=== PATIENT | female | born 1995 | race Caucasian/White ===

== ENCOUNTER 2019-12-23 10:37 | Emergency (ER) | payer MEDICAID ==
[~2019-12-23] VITALS: Ht 165.1 cm; Wt 43.1 kg
--- NOTE | 2019-12-23 10:37 | NUR ---
PT BIB [facility],C/O GENERALIZED BODY PAIN S/P GLF YESTERDAY, PT IS AAOX4, NOT IN RESPIRATORY DISTRESS, HOOKED TO ORDER ENTRY SPECIALIST, KEPT RESTED AND COMFORTABLE. WILL CONTINUE TO MONITOR.
[2019-12-23] MEDS ORDERED: FENTANYL PF 100MCG/2ML AMPUL ONE ×2 (10:54→12:31)
--- NOTE | 2019-12-23 10:55 | NUR ---
PT SEEN AND EXAMINED BY .
--- NOTE | 2019-12-23 10:58 | NUR ---
IV LINE ESTABLISHED BLOOD DRAWN.
[2019-12-23] MEDS ORDERED: IV NS 0.9% 1,000 ML BAG IV ONE (11:00)
[2019-12-23] MEDS ORDERED: FENTANYL PF 100MCG/2ML AMPUL IV ONE ×2 (11:00→12:00)
--- NOTE | 2019-12-23 11:02 | NUR ---
ER PHLEB AT BEDSIDE FOR BLOOD DRAW.
--- NOTE | 2019-12-23 11:10 | NUR ---
PT SIGNED WAIVER AND AGREED TO THE XRAY/CT SCAN.
--- NOTE | 2019-12-23 11:15 | NUR ---
PT CLEARED FROM C-SPINE. C-COLLAR REMOVED BY DR GASTON.
[2019-12-23 11:18] LABS: BASOPHILS # (AUTO) 0.1 /CMM (0.0-0.2); BASOPHILS % (AUTO) 0.3 % (0.0-2.0); EOSINOPHILS % (AUTO) 0.1 % (0.0-6.0); HEMATOCRIT 37 % (33-45); HEMOGLOBIN 12.3 g/dL (11.5-14.8); LYMPHOCYTES # (AUTO) 0.7 /CMM (0.8-4.8); LYMPHOCYTES % (AUTO) 3.8 % (20.0-44.0); MEAN CORPUSCULAR HGB CONC 33 g/dl (31.0-36.0); MEAN CORPUSCULAR VOLUME 92 fL (82-100); MONOCYTES % (AUTO) 5.3 % (2.0-12.0); NEUTROPHILS # (AUTO) 17.7 /CMM (1.8-8.9); NEUTROPHILS % (AUTO) 90.5 % (43.0-81.0); PLATELET COUNT (AUTO) 138 /CMM (150-450); RED BLOOD CELL COUNT(AUTO) 4.06 MIL/uL (4.0-5.2); WHITE BLOOD COUNT (AUTO) 19.6 K/uL (4.3-11.0)
--- NOTE | 2019-12-23 11:18 | NUR ---
CONTACT ASSEMBLER AT BEDSIDE FOR XRAY.
[2019-12-23 11:26] LABS: ALANINE AMINOTRANSFERASE 149 U/L (12-78); ALBUMIN 3.9 g/dL (3.4-5.0); ALCOHOL, BLOOD < 3 mg/dL (0-0); ALKALINE PHOSPHATASE 49 U/L (46-116); ASPARTATE AMINOTRANSFERASE 161 U/L (15-37); BILIRUBIN,DIRECT 0.3 mg/dL (0.0-0.2); BILIRUBIN,TOTAL 1.6 mg/dL (0.2-1.0); CALCIUM, SERUM 8.9 mg/dL (8.5-10.1); CARBON DIOXIDE 25 mmol/L (21-32); CHLORIDE 100 mmol/L (98-107); GLUCOSE 125 mg/dL (74-106); POTASSIUM 3.8 mmol/L (3.5-5.1); SODIUM SERUM 134 mmol/L (136-145); UREA NITROGEN, BLOOD 12 mg/dL (7-18)
[2019-12-23 11:27] LABS: ACETAMINOPHEN 0 ug/ml (10-30); SALICYLATE 0.2 mg/dL (2.8-20.0)
--- NOTE | 2019-12-23 11:38 | NUR ---
XRAY IN PROGRESS AT THE BEDSIDE.
--- NOTE | 2019-12-23 11:43 | NUR ---
DR GASTON, KIMBERLI RN, AND MYSELF, LOG ROLLED THE PT. PT HAS A SMALL HEMATOMA ON THE BACK AROUND THE THORACIC/LUMBAR AREA.
--- NOTE | 2019-12-23 12:33 | NUR ---
PT IS C/O SEVERE PAIN. MEDICATION ORDERED AND BEING ADMINISTERED.
--- NOTE | 2019-12-23 12:34 | NUR ---
CONTACTED DR LIGHT FOR TRANSFER FOR DX L1 FX
--- NOTE | 2019-12-23 12:45 | NUR ---
DR LIGHT SPEAKING WITH DR GASTON
[2019-12-23] MEDS ORDERED: IV NS 0.9% 1,000 ML IV PRN (12:53)
[2019-12-23] MEDS ORDERED: ONDANSETRON HCL/PF 4 MG/2 ML VIAL IVP PRN (13:00)
[2019-12-23] MEDS ORDERED: ZOLPIDEM TARTRATE 5 MG TABLET PO PRN (13:00)
[2019-12-23] MEDS ORDERED: Z GUARD REMEDY 2 OZ OINT TP PRN (13:00)
[2019-12-23] MEDS ORDERED: MAGNESIUM HYDROXIDE 30 ML UDC PO PRN (13:00)
[2019-12-23] MEDS ORDERED: HYDROCODONE/APAP 10/325MG 1 EA TABLET PO PRN (13:00)
[2019-12-23] MEDS ORDERED: ACETAMINOPHEN 325 MG TABLET PO PRN (13:00)
[2019-12-23] MEDS ORDERED: HYDROCODONE/APAP 5/325MG 1 EACH TABLET PO PRN (13:00)
[2019-12-23] MEDS ORDERED: MAG HYDROX/AL HYDROX/SIMETH 30 ML UDC PO PRN (13:00)
--- NOTE | 2019-12-23 13:10 | NUR ---
DR LIGHT STATES HE WILL TRY TO TRANSFER
--- NOTE | 2019-12-23 13:11 | NUR ---
FIFITYLERALL BACK FROM HER MOTHER,IZABEL, ,TOLD HER THAT WE WILL CALL HER ONCE WE HAVE MORE INFO ON HER CONDITION, PATIENT ALSO SAID THAT IT'S OKAY TO GIVE INFORMATION TO HER MOM.DR GASTON INFORMED. Addendum: 12/23/19 at 1510 by GLABOG CALL BACK FROM HER MOTHER,IZABEL, ,TOLD HER THAT WE WILL CALL HER ONCE WE HAVE MORE INFO ON HER CONDITION, PATIENT ALSO SAID THAT IT'S OKAY TO GIVE INFORMATION TO HER MOM.DR GASTON INFORMED.
[2019-12-23 13:53] LABS: APPEARANCE,URINE Clear (CLEAR); BILIRUBIN,URINE Negative (NEGATIVE); BLOOD, URINE Small Ery/uL (NEGATIVE); COLOR,URINE Yellow (YELLOW); KETONES,URINE 15 (NEGATIVE); LEUKOCYTE ESTERASE ,URINE Negative (NEGATIVE); NITRITE, URINE Negative (NEGATIVE); PROTEIN,URINE 30 mg/dl (NEGATIVE); UGLUCOSE 100 MG/DL mg/dL (NEGATIVE); UROBILINOGEN,URINE 0.2 EU/dL (0.2)
[2019-12-23 13:55] LABS: BACTERIA,URINE Few /HPF (None Seen); SQUAMOUS EPITHELIAL CELL,UR Few /HPF (None Seen)
--- NOTE | 2019-12-23 14:06 | NUR ---
VERBAL ORDER FROM DR GASTON. 1MG DILAUDID IVP.
[2019-12-23] MEDS ORDERED: HYDROMORPHONE 1 MG/1 ML DISP.SYRIN ONE ×2 (14:09→15:46)
[2019-12-23 14:17] LABS: THYROID STIMULATING HORMONE 0.388 uIU/mL (0.358-3.74)
--- NOTE | 2019-12-23 14:17 | NUR ---
PT WAS ACCEPTED AT [facility] BY DR ROJAS.
--- NOTE | 2019-12-23 14:28 | NUR ---
CALLED [facility] 1600 HOURS
--- NOTE | 2019-12-23 14:29 | NUR ---
CALLED [facility] FOR [facility] 1800 HOURS
--- NOTE | 2019-12-23 14:33 | NUR ---
CALLED FOR ALS TRAUMA TRANSFER TO [facility], [place] [address] [place]
--- NOTE | 2019-12-23 14:34 | NUR ---
DR PAL,ROLETTE TRAUMA SURGEON, SAID THAT LONG PATIENT HAS NO NEUROLOGICAL SIGNS OF COMPROMISE AND CAN MOVE ALL HER EXTREMITIES, IT'S OKAY TO WAIT FOR 1 1/2 HRS FOR THE AMBULANCE.
--- NOTE | 2019-12-23 14:39 | NUR ---
REPORT GIVEN TO PEG SWAN RN AT [facility].
[2019-12-23] MEDS ORDERED: HYDROMORPHONE 1 MG/1 ML DISP.SYRIN IV ONE (15:00)
--- NOTE | 2019-12-23 15:19 | NUR ---
IZABEL CALLED AND INFORMED OF THE TRANSFER,SAID THAT SHE WILL HEAD TO [facility] SINCE SHE IS COMING FROM [facility]
--- NOTE | 2019-12-23 15:29 | NUR ---
[facility] EMT ARRIVED. REPORT GIVEN. COPY OF THE CHART WITH DISK OF IMAGING GIVEN. .
[2019-12-23 15:32] VITALS: BP 112/64
--- NOTE | 2019-12-23 15:45 | NUR ---
VERBAL ORDER GIVEN BY 1MG DILAUDID IVP
--- NOTE | 2019-12-23 15:45 | NUR ---
PT TO BE MEDICATED FOR TRANSPORT TO [facility]
[2019-12-23] MEDS ORDERED: HYDROMORPHONE INJ 0.5 MG/0.5 ML SYRINGE IV ONE (16:00)
[2019-12-24] MEDS ORDERED: PANTOPRAZOLE 40 MG TABLET.DR PO SCH (07:30)
== END 2019-12-23 15:33 ==
LOC: ER 10:40
DX: S32.018A Other fracture of first lumbar vertebra, initial encounter for closed fracture (principal); R79.89 Other specified abnormal findings of blood chemistry; F17.200 Nicotine dependence, unspecified, uncomplicated; Z91.048 Other nonmedicinal substance allergy status; Z60.2 Problems related to living alone; W17.89XA Other fall from one level to another, initial encounter; Y93.89 Activity, other specified; Y92.89 Other specified places as the place of occurrence of the external cause; Y99.8 Other external cause status
CPT/HCPCS: 36415; 71045; 72128; 72131; 72170; 73590 ×2; 73620 ×2; 80048; 80061; 80076; 80305; 80307; 80329; 81001; 82550; 82553; 84443; 84484; 84703; 85025; 85652; 85730; 93005; 96374; 96375; 96376; 99291; G0480; J1170 ×2; J3010 ×2; J7030; 81000-TC